=== PATIENT | male | born 1955 | race Caucasian/White ===

== ENCOUNTER 2018-03-11 15:38 | Emergency (ER) | payer OTHER, SELFPAY ==
[2018-03-11 15:48] VITALS: BP 134/81; PULSE 81; RESP 18; TEMP 37; O2SAT 98; BMI 31.4
--- NOTE | 2018-03-11 16:47 | ED_ITS ---
HPI - Eye Problem <Meghana Fuentes PA-C - Last Filed: 03/11/18 22:53> General Chief complaint: Eye Problems Stated complaint: REDNESS LEFT EYE Time Seen by Provider: 03/11/18 16:20 Source: patient Mode of arrival: ambulatory Limitations: no limitations History of Present Illness HPI Narrative: This 62-year-old male comes in today due to others noticing redness or bleeding in his left eye. States this was noticed by others at work. He has not had any eye pain or discomfort. He has not had any vision change, crusting, or discharge. He recently had a URI where he was coughing and blowing his nose a lot. This is getting better, but he notes he did have a slight nosebleed on that side previously also. Currently he reports feeling well and would not have come in if others had not noted this. He denies any lightheadedness or chest discomfort. Related Data Allergies Allergy/AdvReac Type Severity Reaction Status Date / Time No Known Drug Allergies Allergy Verified 03/11/18 15:51 Review of Systems <Meghana Fuentes PA-C - Last Filed: 03/11/18 22:53> Review of Systems All systems reviewed & are unremarkable except as noted in HPI and below Exam <Meghana Fuentes PA-C - Last Filed: 03/11/18 22:53> Narrative Exam Narrative: GENERAL APPEARANCE: Patient sitting comfortably, in no distress. EYES: PERRL, EOMI, L. lateral subconjunctival hemorrhage does not cross the iris EARS: Normal auditory canals, TMS intact with normal light reflexes. ORAL CAVITY: Normal oropharynx. THROAT: Clear. NECK/THYROID: Neck supple, full range of motion, no cervical lymphadenopathy. LUNGS: Clear to auscultation bilaterally, no cough on exam. HEART: RRR without murmur, nl S1, S2, no S3 or S4. Initial Vital Signs Initial Vital Signs: Vital Signs Temperature 98.6 F 03/11/18 15:48 Pulse Rate 81 03/11/18 15:48 Respiratory Rate 18 03/11/18 15:48 Blood Pressure 134/81 H 03/11/18 15:48 Pulse Oximetry 98 03/11/18 15:48 <Migue Pereyra MD - Last Filed: 04/11/18 06:54> Initial Vital Signs Initial Vital Signs: Vital Signs Temperature 98.6 F 03/11/18 15:48 Pulse Rate 81 03/11/18 15:48 Respiratory Rate 18 03/11/18 15:48 Blood Pressure 134/81 H 03/11/18 15:48 Pulse Oximetry 98 03/11/18 15:48 Course <Meghana Fuentes PA-C - Last Filed: 03/11/18 22:53> Vital Signs - 8 hr 03/11/18 15:48 Temperature 98.6 F Pulse Rate 81 Respiratory Rate 18 Blood Pressure 134/81 H Pulse Oximetry 98 <Migue Pereyra MD - Last Filed: 04/11/18 06:54> Vital Signs - 8 hr 03/11/18 15:48 Temperature 98.6 F Pulse Rate 81 Respiratory Rate 18 Blood Pressure 134/81 H Pulse Oximetry 98 Discharge Plan Departure Patient Disposition: Home, Self-Care Clinical Impression: TEJA (subconjunctival hemorrhage) Discharge Date/Time: 03/11/18 17:04 Interventions: ED Discharge Assessment Last Done: 03/11/18 17:03 Instructions: DI for Subconjunctival Hemorrhage Activity Restrictions/Additional Instructions: Return if you have any acutely worsening symptoms such as eye pain or vision change, otherwise this should resolve on its own with time. Referrals: Maxwell Harris [Other] <Migue Pereyra MD - Last Filed: 04/11/18 06:54> Cosign ED Attending Cosignature Attestation: The PA/FIBERGLASS LUGGAGE MOLDER functioned independently for the care of this pt, I was available, but not asked to participate in care. I am unable to determine appropriateness of management without personally examining the pt.
== END 2018-03-11 17:04 | disposition home or self-care (01) ==
PROVIDERS: Emergency Provider Emergency Medicine
DX: H11.30 Conjunctival hemorrhage, unspecified eye (principal)
CPT/HCPCS: 99282; 99283